=== PATIENT | male | born 1980 | race Two or more races ===

== ENCOUNTER 2025-06-27 22:03 | Emergency (ER) | payer OTHER ==
[~2025-06-27] VITALS: Ht 175.3 cm; Wt 95.3 kg
[2025-06-28] MEDS ORDERED: KETOROLAC TROMETHAMINE 30 MG VIAL ONE ×2 (00:41→08:05)
[2025-06-28] MEDS ORDERED: DIATRIZOATE MEGLUMINE, SODIUM 30 ML BOTTLE ONE (00:41)
[2025-06-28] MEDS ORDERED: KETOROLAC TROMETHAMINE 30 MG VIAL IV STA ×2 (00:42→08:02)
[2025-06-28] MEDS ORDERED: 0.9 % SODIUM CHLORIDE 1,000 ML IV ONE (00:45)
[2025-06-28 01:23] LABS: BASO % 0.3 % (0.1-1.2); EOS # 0.34 (0.04-0.54); EOS % 5.2 % (0.7-7.0); LYMPH # 2.28 (1.18-3.74); LYMPH % 34.8 % (19.3-53.1); MEAN PLATELET VOLUME 9.40 fl (9.4-12.4); MONO # 0.41 (0.24-0.82); MONO % 6.3 % (4.7-12.5); NEUT # 3.49 (1.56-6.13); NEUT % 53.2 % (34.0-71.1); RED CELL DISTRIBUTION WIDTH 12.3 % (11.6-14.4)
[2025-06-28 01:36] LABS: URINE APPEARANCE Clear; URINE BILIRRUBIN Negative (NEGATIVE); URINE BLOOD Negative; URINE COLOR Yellow; URINE GLUCOSE Negative (NEGATIVE); URINE KETONE Negative (NEGATIVE); URINE LEUKOCYTE Negative; URINE NITRATE Negative; URINE PROTEIN Negative (NEGATIVE); URINE UROBILINOGEN 0.2 E.U./dl
[2025-06-28 01:40] LABS: URINE BACTERIA 2.3 uL (0.0-1933); URINE EPITHELIAL CELLS 0.1 uL (0.0-38.8); URINE RBC 0.2 uL (0.0-20.8); URINE WBC 0.1 uL (0.0-23.2)
[2025-06-28 01:41] LABS: URINE CAST 0.00 uL (0.0-1.40)
[2025-06-28 01:44] LABS: INR 0.98
[2025-06-28 01:47] LABS: ALT/SGPT 21.0 U/L (12-78); AST/SGOT 27.0 U/L (15-37); BILIRUBIN TOTAL 0.21 mg/dL (0.3-1.2); BUN CREA RATIO 17.0 (7.0-25.0); CREATININE SERUM 1.13 mg/dL (0.70-1.30); GFR 69.56; GLOBULINA 3.3 G/DL (2.4-3.5); GLUCOSE FASTING 100.0 mg/dL (65-100); OSMOLALITY SERUM 287.0 MOSM/KG (275-295)
[2025-06-28] MEDS ORDERED: MORPHINE SULFATE 4 MG/ML VIAL IV STA (06:50)
== END 2025-06-28 10:37 | disposition home or self-care (01) ==
LOC: ER 22:43
PROVIDERS: General Practice
DX: R10.32 Left lower quadrant pain (principal); R10.9 Unspecified abdominal pain
CPT/HCPCS: 36415; 74177; Q9965